=== PATIENT | male | born 2005 | race Caucasian/White ===

== ENCOUNTER → 2024-11-06 | Outpatient (CLI) | payer BC, SELFPAY ==
--- OUTSIDE RECORDS SUMMARY | 2024-11-06 07:30 | XMS RPT_ITS | CCD ---
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 Mallampati: I. TM distance: >3 FB. Neck ROM: full ROM without neurological symptoms. Mouth opening: adequate. Short neck: no. Thick neck: no DENTAL Dental findings: teeth intact. Additional exam findings: no II - ANESTHESIA PLAN ASA Score: 1 Anesthetic Plan: regional and MAC NPO Status: adequate Beta Camilla Monitoring Plan Monitoring plan: Standard ASA. Post Procedure Analgesic Plan Postoperative analgesic plan: parenteral or oral opioids, peripheral nerve block and multimodal analgesia. Informed Consent Anesthetic risks, benefits, alternatives, personnel and consent discussed: yes. Patient / Responsible Alliance Party agrees to proceed: yes Patient / Surrogate agrees to blood products: yes DNR status not reviewed with patient and/or family prior to surgery. Significant changes in the patient condition since the History and Physical, not otherwise documented in primary service progress note: no. Potential Anesthesia issues that may suggest increased risk of complications or contraindication to planned procedure: none. No vitals data found for the desired time range. Facility-Administere d Medications as of 07/20/2023 Medication Dose Route Frequency - midazolam (PF) 6 mg injection (VERSED) 6 mg INTRAVENOUS ONCE Outpatient Medications as of 07/20/2023 Medication Sig - HYDROcodone-acetamin ophen (NORCO) 5-325 mg per tablet Take 1 tablet by mouth every 6 hours as needed for pain for up to 5 days. I have interviewed and examined the patient. I have reviewed the medical record and/or the pre-anesthesia evaluation, pertinent labs, and test results. This contains updated information obtained within 48 hours of Surgery/Procedure. SIGNATURE: Sandra Grimm MD PATIENT NAME: Landon Frost DATE: July 20, 2023 TIME: 12:14 PM CSN: [id number] Normal [facility] BRIEF OP NOTon 07-20-2023 BRIEF OP NOT HNO ID: [id number] Author: AIRAM SEGOVIA MD Service: Hand Surgery Author Type: Fellow Type: Brief Op Note Filed: 07/20/2023 15:33 Note Text: BRIEF OP NOTE Patient Name: Landon Frost Log ID: [id number] Surgery Date: 07/20/2023 Pre-Op/Pre-Procedure Diagnosis: Rupture of ulnar collateral ligament of left thumb, 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 [S63.642A] Post-Op/Post-Procedu re Diagnosis: Same Surgeon(s) and Software Configuration Analyst(s): Farhan Sommers MD PhD Surgeon(s) and Role: * Farhan Sommers MD, PhD - Primary * Airam Segovia MD - Fellow Procedures and Anesthesia: Procedure(s) and Anesthesia Type: * OPEN REPAIR LIGAMENT COLLATERAL THUMB - Block Regional - Extremity Upper Start Time: 2:44 PM Stop Time: 3:26 PM Findings: distal UCL rupture with robust tissue, able to repair primarily Implant: Arthrex micro corkscrew 2.2 x 4.0mm Estimated Blood Loss: 3mL Tourniquet Time: 36min (200 mmHg) Drains: None Specimens: None Plan: 1) Discharge home today 2) Keep thumb spica splint clean, dry, and intact until follow-up Signature: Airam Segovia MD Date: July 20, 2023 Time: 3:32 PM Normal [facility] HISTORY PHYSICALon HISTORY PHYSICAL HNO ID: [id number] Author: AIRAM SEGOVIA MD Service: Hand Surgery Author Type: Fellow Type: H&P Filed: 07/20/2023 11:38 Note Text: UPDATED HISTORY AND PHYSICAL EXAMINATION SERVICE DATE: 07/20/2023 SERVICE TIME: 1137 PHYSICAL EXAM MUST BE COMPLETED ON ADMISSION The History and Physical (completed in the past 30 days) has been reviewed and the patient has been examined. The contents accurately reflect the patient's condition with the following additions or revisions since the HANDP was completed. Examination indicates no changes. This HANDP can be found in the Electronic Medical Record dated 07/06/23. 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 Item Serial No. Court Commissioner Lot No. LRB No. Used Action Model No. ANCHOR SUTURE 4-0 3/8 CIR MICRO FULTHD TAPER 2.2MM 4MM 12.3 [place] [employer] [id number] Left 1 Implanted [id number] Drain: None Specimen: None Operative Indications: The patient is an 17 year old male with a history of a left thumb UCL rupture about a year and a half ago while playing football. Advanced imaging demonstrated a Stener lesion. After the risks, benefits, and alternatives were discussed, he opted for surgical repair versus reconstruction of his UCL. Risks, Benefits, and Alternatives The patient was counseled extensively regarding the options for treatment including operative and non-operative forms of treatment and after thorough counseling has elected to proceed with surgical treatment. The patient was counseled that with surgical treatment there is the possibility that their condition might not improve or may even worsen. No guarantees or warranties were provided regarding the outcome. Specific surgical risks discussed include stiffness, infection, bleeding, post-operative pain, damage to nerves and blood vessels, wound dehiscence and wound healing problems, incomplete relief of pain, the need for physical/occupationa l therapy, inability to return to their desired level of function, complex regional pain syndrome, as well as medical complications such as anesthetic complications, cardiopulmonary complications and . The patient expressed understanding of all the issues described above and has elected to proceed with the aforementioned procedure. Operative Procedure: In the preoperative holding area, the appropriate surgical site was marked with the patient cognizant. An axillary block was performed by the anesthesiologist in the preop holding area. The patient was identified by the surgical team and a sign-in was performed with all of the pertinent surgical staff including myself, anesthesia and nursing. The patient was then brought to the operating room by the anesthesia team. The patient subsequently was transferred from their bed to the operating table and underwent MAC anesthesia. The patient was then positioned in the supine position and the arm table was attached to the operating room table. All bony prominences were well padded. The operative arm was appropriately identified and prepped. Once the hibiclens prep was completed, the operative extremity was draped in sterile fashion. A surgical time-out was performed. Preoperative antibiotics were verified to have been given within one hour of incision time, prior to incision. The arm was exsanguinated using an Esmarch and the tourniquet was then inflated to 200mmHg. A 5cm curvilinear incision was made in the skin over the ulnar side of the MCP joint. Full thickness skin flaps were elevated taking care to preserve any cutaneous nerve branches. The aponeurosis was split longitudinally. The UCL was then mobilized from where there was scar tissue distally. It was robust and not needing any augmentation but was adequate for a primary repair. We then placed a Arthrex micro corkscrew anchor in the base of the proximal phalanx and secured the UCL to the [place] insertion site. The wound was copiously irrigated and then the aponeurosis was closed in a separate layer over the ligament using 3-0 monocryl. Prior to skin closure, the tourniquet was released and hemostasis was obtained by holding pressure and using bipolar cautery on any visible bleeding vessels. Once hemostasis was verified, closure commenced. The wound was closed with 3-0 and 4-0 monocryl. All counts, verified in 2 separate count episodes, were correct at the end of the case prior to completing skin closure. A sterile dressing comprised of Xeroform, 4x4s, and webril was then applied. The drapes were taken down and a thumb spica splint was applied and then loosely wrapped with Coban to complete the dressing. The patient was then awoken from their anesthesia and transferred back to the hospital bed from the operating room table; he was then taken to the PACU i (more content not included)... Normal [facility] HISTORY PHYSICALon 4 HISTORY PHYSICAL HNO ID: [id number] Author: MELVA CASIANO PA Service: ? Author Type: Physician Software Configuration Analyst Type: H&P Filed: 07/06/2023 09:09 Note Text: HISTORY AND PHYSICAL EXAMINATION SERVICE DATE: 07/06/2023 SERVICE TIME: 9:08 AM PRIMARY CARE PHYSICIAN: Mona Barillas MD Assessment There is no known pertinent medical condition which may affect brittanie-operative course Hoyt Activity Status Index: METS: Walk indoors, such as around the house (1.75 METs) Do light work around the house, such as dusting or washing dishes (2.70 METs) Take care of self; that is eating, dressing, bathing, using the toilet (2.75 METs) Walk a block or two on level ground (2.75 METs) Do moderate work around the house, such as vacuuming, sweeping floors, or carrying in groceries (3.50 METs) Do yardwork, such as raking leaves, weeding, or pushing a power mower (4.50 METs) Climb a flight of stairs or walk up a hill (5.50 METs) Participate in moderate recreational activites, such as golf, bowling, dancing, doubles tennis, or throwing a baseball or football (6.00 METs) Participate in strenuous sport, such as swimming, singles tennis, football, basketball, or skiing (7.50 METs) Do heavy work around the house, such as scrubbing floors, lifting or moving heavy furniture (8.00 METs) Run a short distance (8.00 METs) DASI Score: 52.95 Patient denies any chest pain or undue shortness of breath with the above physical activity. STOP-Bang Score: Male patient Denies snoring loudly Denies feeling tired, fatigued, or sleepy during the daytime Has not been observed to stop breathing or choking/gasping during sleep Denies having high blood pressure BMI less than or equal to 35 kg/m2 Patient 50 years old or younger Does not have a large neck STOP-Bang Score: 1 ANESTHESIA FINDINGS: Intubation History: No prior intubation Significant Anesthesia Considerations: has never had anesthesia Airway History: No prior intubation I - PHYSICAL EVALUATION AIRWAY Patient intubated: No. Tracheostomy tube not present Mallampati: II. TM distance: >3 FB. Neck ROM: full ROM without neurological symptoms. Mouth opening: adequate. Short neck: no. Thick neck: no Arambula present: no Lip Bite Test: II Microretrognathia/Mi cronagthia/Recessed Chin: No DENTAL Dental findings: teeth intact. II - ANESTHESIA PLAN Anesthetic plan additional comments: *PACC/TCI - anesthesia choice. Beta Camilla Monitoring Plan Post Procedure Analgesic Plan Prepared for Surgery: optimally prepared for surgery. CONSULTS: Patient does not require consults for optimization at this time Planned Anesthetic: anesthesia choice The Following Tests/Procedures Have Been Initiated: No orders of the defined types were placed in this encounter. This is a virtual visit using Hapzing video visit. It required patient-provider interaction for the medical decision making as documented below. REASON FOR VISIT: Landon Frost is a 17 year old male who is scheduled for Procedure(s): OPEN REPAIR LIGAMENT COLLATERAL THUMB (Left) at the request of Dr. Farhan Sommers for consultation. My final recommendation will be communicated back to the requesting physician by way of shared medical record or letter. Subjective The patient has the following: ACTIVE PROBLEM LIST (none) - all problems resolved or deleted COVID-19 Immunization Status Overdue - Covid-19 Vaccine () Overdue since 01/08/2023 10/16/2021 Imm Admin: COVID-19 original vaccine, age 12+ yr, monovalent (PFIZER-BIONTECH - TENORIO TOP) 09/18/2021 Imm Admin: COVID-19 original vaccine, age 12+ yr, monovalent (PFIZER-BIONTECH - TENORIO TOP) CHIEF COMPLAINT: Pre-anesthesia consultation HPI: 17 year old year old male presents today for a pre-anesthesia consultation for the above procedure. Patient states he injured his left thumb while playing football in 01/2022. He reports pain, limited ROM, and decreased strength in his left thumb since the injury. He denies fever or chills. This is a virtual visit. The visit was conducted using Hapzing video visit. It required patient-provider interaction for the medical decision making as documented below. I have communicated my name and active licensure. The patient's identity and physical location were verified at the time of this visit. Either the patient or their legal field representatives director has been informed of the risks and benefits of and alternatives to treatment through a remote evaluation and consents to proceed with the evaluation remotely. REVIEW OF SYSTEMS: General: No weight loss, malaise or fevers. Neurological: No history of TIA's, stroke, CALL WORKER PERSON tumor, impaired sensorium, hemiplegia, paraplegia or quadraplegia. No neurological symptoms or problems. Respiratory: No history of current cough or dyspnea, or pneumonia in the past 6 weeks. No history of respiratory/pulmonar y symptoms or problems. Cardiovascular: No history of H (more content not included)... Normal [facility] CNOVon 04-19-2023 CNOV Office Visit (ORTPMN) SANTOSHLANDON Hawthorne ([id number]) 3 M Date Time Provider Department 04/19/23 10:25 AM FARHAN SOMMERS ORMN During your visit today, we recorded the following information about you: Farhan Sommers MD, PhD 04/19/2023 12:54 PM Signed April 19, 2023 CHIEF COMPLAINT: left thumb pain/instability HPI: Landon Hawthorne Santosh is a 17 year old LHD male who presents to clinic with Pain and instability of his left thumb. 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 He recently finished his senior season. He was able to play this year by taping his thumb. He was previously told he had a collateral ligament injury to the thumb but was advised that he could continue playing and have it dealt with later if he was physically able to play. 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 Denies numbness tingling. Does report pain with daily activities around his MCP joint. Referred by: Dr Kennedy Occupation: high school student Hobbies: football Pain: yes Weakness: yes Paresthesia: no Decreased Motion:no Locking / Catching: no Mass or Lesion: no HISTORY OF TRAUMA: yes Fracture: no Dislocation: no Laceration: no PREVIOUS TREATMENTS: Injections: no Medication: no Splints: yes Therapy:no Other: taping ASSESSMENT: 17 year old male with left thumb UCL injury S63.642A Rupture of ulnar collateral ligament of left thumb, 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 (primary encounter diagnosis) PLAN: We discussed various treatment options for this condition, including nonoperative management in the form of splinting, versus operative management in the form of repair versus repair plus augmentation of internal brace versus reconstruction. Given the fact that he is 17 and healthy, he may not need reconstruction, even though the injury occurred over a year ago. We will book him for a repair versus a reconstruction with an internal brace. OBJECTIVE: There were no vitals filed for this visit. There is no height or weight on file to calculate BMI. General: NAD Eyes: Pupils not pinpointed, not overly dilated, anicteric Neck: Full range of motion Cardiovascular: Palpable pulse and brisk capillary refill (<2 sec) to all fingers Lymphatic: Inspection of the arm/hand reveals no lymphedema and palpation of epitrochlear nodes is unremarkable. Respiratory: Respirations even and unlabored, no audible wheezing Integumentary: Inspection of skin reveals no breaks or obvious lesions except for those noted below. Neuro: Intact sensation to light touch over the median, ulnar, and radial nerve distributions. Psychiatric: No obvious anxiety, well kempt, normal affect. Appropriate response to pain. Musculoskeletal: Able to flex and extend all fingers at the DIP and PIP. Able to retropulse the thumb, abduct all fingers against resistance. Left thumb Swelling of MCP joint Laxity with valgus stress in 30 degrees of flexion without firm endpoint No laxity in full extension Mild TTP over ulnar side of joint No hyperextension No palmaris present SILT distally, digit WWP IMAGING: Radiographs and MRI of the left thumb were obtained in 2021 which were personally reviewed by me and demonstrate UCL tear with associated Stener lesion Supporting Subjective Information Below: Past Medical History: PAST MEDICAL HISTORY Diagnosis Date Dislocated elbow 05-13-14 NEGATIVE MEDICAL HISTORY PMH - PAST MEDICAL HISTORY OF 2009 normal color vision Past Surgical History: PAST SURGICAL HISTORY Procedure Laterality Date CIRCUMCISION Family History: FAMILY HISTORY Problem Relation Age of Onset None Mother None Father Diabetes Maternal Grandmother Hypertension Maternal Grandmother Cancer Maternal Grandfather skin Diabetes Maternal Grandfather Hypertension Maternal Grandfather Heart Paternal Grandfather Cancer Other colon cancer paternal side Medications: Current Outpatient Medications Medication Sig Dispense Refill fluticasone (FLONASE) 50 mcg/actuation nasal spray Use 1 Ramsey in each nostril once daily. 1 Bottle 5 fexofenadine (TESSY) 60 mg tablet Take 1 tablet by mouth twice daily. (Patient not taking: Reported on 04/19/2023) 180 tablet 3 No current facility-administere d medications for this visit. Allergies: ALLERGIES No Known Allergies ROS: General (negative for fatigue) HEENT (negative for headache, earache, recent vision changes, sinus pain, sore throat) Respiratory (no recent shortness of breath, hemoptysis) CV (negative for chest tightness, palpitations) GI (negative for change in bowel habits) Hematologic (no spontaneous bleeding, bruising) Endocrine (no heat or cold intolerance) Airam Alvarez MD ATTENDING NOTE: I personally performed a history and physical examination on Landon Frost to verify the one performe (more content not included)... Normal [facility] Sukhi 03-16-2023 CNPN Telephone (VIDHYAWS) LANDON FROST ([id number]) 3 M Date Time Provider Department 03/16/23 MARQUES KENNEDY During your visit today, we recorded the following information about you: JAE Ramirez Laurie 03/16/2023 1:10 PM Signed Pts father calling in. Pt was seen last year for torn ligament in his thumb. There was evidentially something in the works about a coordinated surgery with another provider, but then they didn't hear back. Pt is now finished with football and would like to proceed with surgery. Will schedule appt with Dr. Kennedy, but wanted to be sure that this was still something that Dr. Kennedy would do in coordination with the other surgeon. Please review and advise. JAE Metz Ma, Amy M 03/22/2023 12:04 PM Signed Jacqueline Silva PA-C [facility] Orthopaedic Pool; [facility] [address] days [address] with Dr. Kennedy, patient needs to schedule a consult with Dr. Sommers, can we assist him with scheduling? Jacqueline Agustin Ma, Yaneth Lindsay 03/22/2023 12:04 PM Signed Please assist patient with appointment to see Dr. Sommers. Thank you. Mckenna Briggs 03/22/2023 12:22 PM Signed 1st call attempt, left vm JAE Ramirez Laurie 03/23/2023 10:17 AM Signed Pts father calling to schedule the appt with Dr. Sommers. Please contact them at [phone]. JAE Metz MA, Laurie 03/23/2023 10:30 AM Signed Transferred to [facility]. Jes Ramirez MA Allergies As of Date: 03/16/2023 (No Known Allergies) Date Reviewed: 04/19/2022 Reviewed by: Marques Kennedy MD - Fully Assessed Reason for Visit: Patient Question [2847] Prescriptions as of 03/23/2023 - fexofenadine (TESSY) 60 mg tablet Take 1 tablet by mouth twice daily. - fluticasone (FLONASE) 50 mcg/actuation nasal spray Use 1 Ramsey in each nostril once daily. Problem List As Of Date 03/16/2023 Noted Resolved Dislocation of left elbow [S53.105A] 05/15/2014 11/14/2015 Closed fracture of radius [S52.90XA] 03/18/2015 11/14/2015 Encounter Status:Closed by JAE RAMIREZ LAURIE on 03/23/23 Normal [facility] MR Hand - left WO contraston 01-10-2022 IMPRESSION: Displaced rupture of thumb ulnar collateral ligament with associated Stener lesion. Distal first metacarpal marrow contusion. Craps Manager: PSCB Transcribe Date/Time: Jan 10 2022 9:38A Dictated by : ANIVAL ZARAGOZA, DO This examination was interpreted and the report reviewed and electronically signed by: JESSICA GRACE MD on Jan 10 2022 11:15AM [facility] DIVISION OF RADIOLOGY * * *Final Report* * * DATE OF EXAM: Jan 09 2022 7:00PM [facility] 0200 - MRI HAND WO IVCON LT / PROCEDURE REASON: Closed fracture of left hand, 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 * * * * Physician Interpretation * * * * EXAMINATION: MRI HAND WO IVCON LT HISTORY: 16-year-old male presenting with left thumb fracture status post injury on 12/19/2021 during football, concerning for ulnar collateral ligament rupture. TECHNIQUE: Routine MRI of the thumb without contrast COMPARISON: Abdominal radiographs 12/22/2021 RESULT: Ligaments: Rupture of ulnar collateral ligament of the thumb at the distal attachment, with retraction and displacement superficial to the adductor aponeurosis, consistent with a Stener lesion. Associated moderate marrow edema at the base of some proximal phalanx. Tendons: Mild increased signal within the tendon sheath of the thumb flexor tendon at the level of base of proximal phalanx, likely reactive fluid. The visualized flexor and extensor tendons are otherwise intact. Bones and bone marrow: Subacute moderate contusion at the distal first metacarpal with moderate marrow edema. Joints/cartilage: Mild volar subluxation at the thumb MCP joint. Joint fluid: Small joint effusion at the thumb MCP joint. Other: No other significant findings. Localizer images: No significant additional findings. DIVISION OF RADIOLOGY Provider, [facility] [place] - 01/10/2022 * * *Final Report* * * DATE OF EXAM: Jan 09 2022 7:00PM [facility] 0200 - MRI HAND WO IVCON LT / PROCEDURE REASON: Closed fracture of left hand, 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 * * * * Physician Interpretation * * * * EXAMINATION: MRI HAND WO IVCON LT HISTORY: 16-year-old male presenting with left thumb fracture status post injury on 12/19/2021 during football, concerning for ulnar collateral ligament rupture. TECHNIQUE: Routine MRI of the thumb without contrast COMPARISON: Abdominal radiographs 12/22/2021 RESULT: Ligaments: Rupture of ulnar collateral ligament of the thumb at the distal attachment, with retraction and displacement superficial to the adductor aponeurosis, consistent with a Stener lesion. Associated moderate marrow edema at the base of some proximal phalanx. Tendons: Mild increased signal within the tendon sheath of the thumb flexor tendon at the level of base of proximal phalanx, likely reactive fluid. The visualized flexor and extensor tendons are otherwise intact. Bones and bone marrow: Subacute moderate contusion at the distal first metacarpal with moderate marrow edema. Joints/cartilage: Mild volar subluxation at the thumb MCP joint. Joint fluid: Small joint effusion at the thumb MCP joint. Other: No other significant findings. Localizer images: No significant additional findings. IMPRESSION IMPRESSION: Displaced rupture of thumb ulnar collateral ligament with associated Stener lesion. Distal first metacarpal marrow contusion. Craps Manager: TONIA Transcribe Date/Time: Jan 10 2022 9:38A Dictated by : ANIVAL ZARAGOZA DO This examination was interpreted and the report reviewed and electronically signed by: JESSICA GRACE MD on Jan 10 2022 11:15AM EST [facility] MR Hand - left WO contrastOr dered By: Ccf Provider on 01-10-2022 [facility] MR Hand - left WO contraston 01-09-2022 Radiology Study observation (narrative) [facility] XR DIGIT GENERAL 3V FRONTAL/ LAT/OBL LEFTon 12-22-2021 [facility] XR Finger - left AP and Late ral and obliqueon 12-22-2021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 to perform basic self-care tasks, light functional tasks, and prior functional tasks. Patient will increase AROM of Left thumb to within 10 degrees of opposite side in order to be able to improve function for moderate to heavy functional tasks. Patient will independently demonstrate correct application of PREFABRICATED orthosis and verbalize understanding of proper wear/care. Patient Goals: get back to functional use and work Planned Interventions, Frequency, and Duration: Current Frequency: 1x every other week Duration: 12 weeks Total Number of Visits Planned: 6 Planned Treatment Interventions: Prefabricated orthosis fitting, Therapeutic exercise (97660), Self-fdc management (60468) PLAN FOR NEXT VISIT:check progress; continue with protective splinting up until 12 wks post surgery; can decrease night brace use as comfortable after 6 wks post surgery; Patient demonstrates good understanding of plan of care and treatment. The above goals and plan of care were discussed and agreed upon by patient/family. 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 5 points is clinically meaningfully difference Percentiles provide an indication of how the patient's score ranks in relation to the general population. Higher percentile rankings indicate better function/quality of life. 50th percentile is the average of the general population and indicates half of respondents had a worse score. OBJECTIVE MEASURES WITH LEVEL OF FUNCTION: Hand Skin / Wound: Scar Scar: Tender (some numbness) Edema Description: Mild Edema Measurements: Digits Edema - Digits: Thumb R Thumb P1 (cm): 6.8 cm R Thumb IP Joint (cm): 7.1 cm L Thumb P1 (cm): 7.3 cm L Thumb IP Joint (cm): 6.8 cm Wrist AROM: Bilateral Limitation Thumb AROM: Bilateral Limitation UE AROM R Wrist Extension: 90 Degrees R Wrist Flexion: 65 Degrees L Wrist Extension: 90 Degrees L Wrist Flexion: 55 Degrees Thumb AROM: Bilateral Limitation Hand AROM R Thumb MP Extension : 0 Degrees R Thumb MP Flexion : 55 Degrees R Thumb IP Extension : 0 Degrees R Thumb IP Flexion : 65 Degrees R Thumb Flexion Adduction (cm): (more content not included)... [facility] 08-18-2023 Note HNO ID: [id number] Author: ALDEN FISHER MA Service: ? Author Type: Division Manager Type: Progress Notes Filed: 08/18/2023 09:53 Note Text: PT ASSESSMENT - CASTING ROOM Landon presents for cast removal. Cast removed and patient was directed to OT for next encounter. Alden Fishre, EMT-B, Funeral Location Manager Beeper: [phone] [facility] 08-18-2023 Note HNO ID: [id number] Author: HANNAH FAYE PA-C Service: ? Author Type: Physician Software Configuration Analyst Type: Progress Notes Filed: 08/18/2023 10:30 Note Text: Landon Frost is now 4 weeks s/p left thumb UCL repair (07/20/23). Doing well and is without complaints today. He does not have pain. Denies any numbness/tingling today other than around the incision. He has been in a cast. General: NAD, AAOx3 Neuro:Intact sensation to light touch over the median, ulnar, and radial nerve distributions. Musculoskeletal: Able to flex and extend all fingers at the DIP and PIP. Able to retropulse the thumb, abduct all fingers against resistance. Incision well healed without surrounding erythema or drainage. Full sensation of all digits. PLAN: Weeks 4-6: Transition to a hand-based, custom fabricated thermoplastic splint used to protect the MP joint. Remove the splint approximately 4x per day for controlled active ROM exercises, preferably under the careful supervision of a certified hand therapist Week 6: Discontinue wearing the splint but continue avoiding activities which stress the UCL for 3 months post-operatively May continue to wear a custom splint to protect the UCL for activities until 12 weeks post-operatively. He will work on ROM Exercises with OT Scar massage Discussed restrictions Follow-up in 6 weeks Hannah Faye PA-C [facility] 08-18-2023 History of Present illness Narrative Images from the original note were not included. Episode Visit Count: 1 Therapist That Will Accept/Oversee The Plan Of Care: Luther Start of Care Date: 08/18/23 Onset Date: 07/20/23 Plan of Care Certification Date: 08/18/23 Next Certification Due Date: 11/10/23 Patient Identified by Name and Date of : Yes [facility] OCCUPATIONAL THERAPY EVALUATION PLAN OF CARE: Assessment: Landon Frost presents with diagnosis of L thumb UCL repair that interferes with lifting, physical activities, recreational activities, grooming, driving, weight bearing, gripping, pinching, twisting, pulling, pushing, carrying . He presents with impairments in edema management, overall function, range of motion, soft tissue healing, and tissue tenderness. PROMIS (Patient-Reported Outcomes Measurement Information System) scores were reviewed and identified as within normal limits. Prognosis for therapy is Good due to: current objective clinical presentation, good overall health status . He will benefit from skilled therapy services to meet the goals established for this plan of care as noted below. Goals for Episode of Care created on 08/18/23 through 11/10/23 Patient will report a good understanding of diagnosis and OT recommendations for progression of program. Patient will demonstrate independence with ongoing home recommendations/exercise program throughout therapy plan of care. Patient will improve function in Left thumb in order to be able to perform basic self-care tasks, light functional tasks, and prior functional tasks. Patient will increase AROM of Left thumb to within 10 degrees of opposite side in order to be able to improve function for moderate to heavy functional tasks. Patient will independently demonstrate correct application of PREFABRICATED orthosis and verbalize understanding of proper wear/care. Patient Goals: get back to functional use and work Planned Interventions, Frequency, and Duration: Current Frequency: 1x every other week Duration: 12 weeks Total Number of Visits Planned: 6 Planned Treatment Interventions: Prefabricated orthosis fitting, Therapeutic exercise (35429), Self-fdc management (07082) PLAN FOR NEXT VISIT:check progress; continue with protective splinting up until 12 wks post surgery; can decrease night brace use as comfortable after 6 wks post surgery; Patient demonstrates good understanding of plan of care and treatment. The above goals and plan of care were discussed and agreed upon by patient/family. 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 5 points is clinically meaningfully difference Percentiles provide an indication of how the patient's score ranks in relation to the general population. Higher percentile rankings indicate better function/quality of life. 50th percentile is the average of the general population and indicates half of respondents had a worse score. OBJECTIVE MEASURES WITH LEVEL OF FUNCTION: Hand Skin / Wound: Scar Scar: Tender (some numbness) Edema Description: Mild Edema Measurements: Digits Edema - Digits: Thumb R Thumb P1 (cm): 6.8 cm R Thumb IP Joint (cm): 7.1 cm L Thumb P1 (cm): 7.3 cm L Thumb IP Joint (cm): 6.8 cm Wrist AROM: Bilateral Limitation Thumb AROM: Bilateral Limitation UE AROM R Wrist Extension: 90 Degrees R Wrist Flexion: 65 Degrees L Wrist Extension: 90 Degrees L Wrist Flexion: 55 Degrees Thumb AROM: Bilateral Limitation Hand AROM R Thumb MP Extension : 0 Degrees R Thumb MP Flexion : 55 Degrees R Thumb IP Extension : 0 Degrees R Thumb IP Flexion : 65 Degrees R Thumb Flexion Adduction (cm): 0 cm R Thumb Radial Abduction: 65 Degrees L Thumb MP Extension : 0 Degrees L Thumb MP Flexion : 55 Degrees L Thumb IP Extension : 0 Degrees L Thumb IP Flexion : 40 Degrees L Thumb Flexion Adduction (cm): -2.5 cm L Thumb Radial Abduction: 55 Degrees Education: Education Learning Preferences: Demonstration, Explanation, Performance, Printed Materials Barriers: None Learning/educational needs: Plan of Care, Home exercise program, Brace Fit Education Provided: Yes, see treatment interventions for education provided Education Provided To: Patient (father) Education Mode/Type: Demonstration, Explanation/Discussion, Literature/Printed Materials, Performance Response to Education/Teach Back: States/Identifies, Return Demonstration TREATMENT: OT Treatment Interventions : Therapeutic Exercise, Self-Mcc Management, Prefabricated Orthosis Fitting Evaluation Therapeutic Exercise: 1: Thumb Exercises: remove splint at least 6 x day for low reps of thumb motion (see pictures) 2: Seen in OT by PA; needs to do protective splinting during heavier tasks until 12 wks post surgery Skilled Intervention: Patient was educated in proper exercise technique and purpose for exercises. Skilled judgment was used in selection of appropriate interventions. Provided written instruction for home exercise program to facilitate proper performance and compliance. Correct performance of therapeutic exercises was facilitated with verbal and visual cuing. Self-Mcc Management: 1: Washing: wash wiht regular soap and water 2: Swelling: ice as needed or run under cold water 3: Scar: massage with firm pressure circles a few times a day to loosen tight tissues 4: Scar: add silicone at night after freshly washing and drying skin 5: OK to remove splint when in safe environment for communications analyst tasks like eating, dressing and airing out skin Skilled Intervention: Activity progression based on professional judgement. Prefabricated orthosis: L 3923 (a) HFO w/out joints (PUSH Metagrip, Actimove) (Actimove Larger) Prefabricated orthosis to provide immobilization, protection and support of surgical repair to promote healing. Patient was instructed in wear and care. Instructed in wearing schedule chyron operator except when exercising / bathing. . Skilled Intervention: Technical skill required for proper fitting of pre-fabricated orthotic and wearing schedule Home Program Assigned: 1: Washing: wash wiht regular soap and water 2: Swelling: ice as needed or run under cold water 3: Scar: massage with firm pressure circles a few times a day to loosen tight tissues 4: Scar: add silicone at night after freshly washing and drying skin 5: Splint; wear most of the day for protection and at night; 6: Thumb Exercises: remove splint at least 6 x day for low reps of thumb motion (see pictures) 7: OK to remove splint when in safe environment for communications analyst tasks like eating, dressing and airing out skin Billing * Evaluation Moderate Complexity: 1 Unit Therapeutic Exercise Treatment Minutes: 5 Self-Care/Home Management Treatment Minutes: 10 * L 3923 (a) HFO w/out joints (PUSH Metagrip, Actimove): 1 Skilled Treatment Time Minutes (timed and untimed codes): 39 Total Session Time (minutes): 39 Session Start Time : 1006 Session Stop Time : 1045 Yvette Sloan OT/L, CHT documented in this encounter [facility] 08-18-2023 History of Present illness Narrative PT ASSESSMENT - CASTING ROOM Landon presents for cast removal. Cast removed and patient was directed to OT for next encounter. Alden Fisher, EMT-B, Funeral Location Manager Beeper: [id number] documented in this encounter [facility] 08-18-2023 History of Present illness Narrative Landon Frost is now 4 weeks s/p left thumb UCL repair (07/20/23). Doing well and is without complaints today. He does not have pain. Denies any numbness/tingling today other than around the incision. He has been in a cast. General: NAD, AAOx3 Neuro:Intact sensation to light touch over the median, ulnar, and radial nerve distributions. Musculoskeletal: Able to flex and extend all fingers at the DIP and PIP. Able to retropulse the thumb, abduct all fingers against resistance. Incision well healed without surrounding erythema or drainage. Full sensation of all digits. PLAN: Weeks 4-6: Transition to a hand-based, custom fabricated thermoplastic splint used to protect the MP joint. Remove the splint approximately 4x per day for controlled active ROM exercises, preferably under the careful supervision of a certified hand therapist Week 6: Discontinue wearing the splint but continue avoiding activities which stress the UCL for 3 months post-operatively May continue to wear a custom splint to protect the UCL for activities until 12 weeks post-operatively. He will work on ROM Exercises with OT Scar massage Discussed restrictions Follow-up in 6 weeks Hannah Faye PA-C documented in this encounter [facility] 08-04-2023 Note HNO ID: [id number] Author: SOWMYA SINGER Cast Paxton Service: ? Author Type: Bond Underwriter Type: Progress Notes Filed: 08/04/2023 08:49 Note Text: PT ASSESSMENT - CASTING ROOM Landon presents for Application of cast. Applied short cast: to Left hand Patient has been instructed in Care of cast.. Yuliet Resendiz Beeper: [id number] [facility] 08-04-2023 Note HNO ID: [id number] Author: YVETTE SLOAN OT/L Service: ? Author Type: Occupational Therapist Type: Progress Notes Filed: 08/04/2023 08:27 Note Text: Patient sent to casting for 2 wks.... to start OT in 2 wks Yvette Sloan OT/L, CHT [facility] 08-04-2023 Note HNO ID: [id number] Author: HANNAH FAYE PA-C Service: ? Author Type: Physician Software Configuration Analyst Type: Progress Notes Filed: 08/04/2023 08:47 Note Text: Landon Frost is now 2 weeks s/p left thumb UCL repair (07/20/23). Doing well and is without complaints today. He does not have pain. Denies any numbness/tingling today. General: NAD, AAOx3 Neuro:Intact sensation to light touch over the median, ulnar, and radial nerve distributions. Musculoskeletal: Able to flex and extend all fingers at the DIP and PIP. Able to retropulse the thumb, abduct all fingers against resistance. Incision well healed without surrounding erythema or drainage. Full sensation of all digits. PLAN: He will go into a thumb spica cast No lifting/pushing/pulling with LUE Follow-up in 2 weeks to transition to a removable thumb spica brace Hannah Faye PA-C [facility] 08-04-2023 History of Present illness Narrative PT ASSESSMENT - CASTING ROOM Landon presents for Application of cast. Applied short cast: to Left hand Patient has been instructed in Care of cast.. Yuliet Resendiz Beeper: [id number] Landon Frost is now 2 weeks s/p left thumb UCL repair (07/20/23). Doing well and is without complaints today. He does not have pain. Denies any numbness/tingling today. General: NAD, AAOx3 Neuro:Intact sensation to light touch over the median, ulnar, and radial nerve distributions. Musculoskeletal: Able to flex and extend all fingers at the DIP and PIP. Able to retropulse the thumb, abduct all fingers against resistance. Incision well healed without surrounding erythema or drainage. Full sensation of all digits. PLAN: He will go into a thumb spica cast No lifting/pushing/pulling with LUE Follow-up in 2 weeks to transition to a removable thumb spica brace Hannah Faye PA-C documented in this encounter [facility] 08-04-2023 Instructions Hannah Faye PA-C - 08/04/2023 8:31 AM EDT 08/17 Cast off 9:30 Yvette OT - 9:45 Hannah Faye- 11am- see in OT documented in this encounter [facility] 08-04-2023 History of Present illness Narrative Patient sent to casting for 2 wks.... to start OT in 2 wks Yvette Sloan OT/L, CHT documented in this encounter [facility] 07-20-2023 Note HNO ID: [id number] Author: SANDRA GRIMM MD Service: Anesthesiology Author Type: Anesthesiologist Type: Anesthesia Procedure Notes Filed: 07/20/2023 13:11 Note Text: ANESTHESIOLOGY PROCEDURE NOTE Peripheral Nerve Block General Information Procedure Start Time/Medication Administration: 07/20/2023 12:38 PM Procedure End time: 07/20/2023 12:57 PM Patient location during procedure: pre-op Timeout Performed Pre-procedure: timeout performed Consent Obtained: Yes Patient identity confirmed: arm band Reason for block: post-op pain management/at surgeon's request Staffing Anesthesiologist: Sandra Grimm MD Performed by: anesthesiologist Preparation Sterility Preparation: hand hygiene performed prior to procedure, sterile gloves, drapes, and procedure tray, surgical cap used, mask used, sterile drape used during line insertion, skin prep agent completely dried prior to procedure Site Prep: Chloraprep Pre-Procedure Neuro Exam Location: LUE Sensory: intact Motor: intact Procedure Details Patient Position: supine Monitoring: Pulse OX, EKG and NIBP Block Type Upper Extremity: brachial plexus Approach: supraclavicular Laterality: left Injection Technique: single-shot Ultrasound Guided: Yes Image in Chart: yes Local Infiltration: Yes Needle Needle Type: echogenic Needle Gauge: 22 G Needle Length: 51 mm Needle Localization: ultrasound, anatomical landmarks and nerve stimulator Assessment Injection assessment: negative aspiration, no paresthesia on injection, incremental injection and local visualized surrounding nerve on ultrasound Paresthesia: none Post-Procedure Neuro Exam Expected Regional Anesthesia: Yes Medications Administered dexamethasone sodium phosphate injection (DECADRON) - peripheral nerve block 4 mg - 07/20/2023 12:38:00 PM ropivacaine (PF) 5 mg/mL (0.5 %) injection (NAROPIN) - peripheral nerve block 20 mL - 07/20/2023 12:38:00 PM SIGNATURE: Sandra Grimm MD PATIENT NAME: Landon Frost DATE: July 20, 2023 TIME: 1:00 PM CSN: [id number] [facility] 07-06-2023 Instructions Melva Casiano PA - 07/06/2023 9:04 AM EST PATIENT PREOPERATIVE INSTRUCTIONS Farhan Sommers MD, PhD has scheduled you for your procedure at this surgery center: [facility]: [phone] --[id number] [place] [address]. Please read below carefully for your personalized instructions. Dietary Restrictions: - No solid food after midnight. - You may have 12 ounces of clear liquids (water, clear juices such as apple juice or gatorade, carbonated beverages, clear tea, black coffee, jello) until 2 hours before scheduled arrival at facility. Medications: Unless instructed differently below, stay on all of your medications until your surgery. If you start any new medications after today's visit, please contact your surgeon. No outpatient medications have been marked as taking for the 07/06/23 encounter (PAT) with [facility]. If you take any medications for erectile dysfunction-Cialis (Tadalafil), Levitra, Staxyn (Vardenafil) Viagra (Sildenenafil please do not take these for 48 hours before surgery. If you start any new medications after today's visit, please contact the surgeon's office. Blood Thinning Medications: - Stop NSAIDS (Ibuprofen, Advil, Aleve, Motrin, Celebrex, Mobic, etc.) 7 days before surgery, as directed by your surgeon. - Stop Aspirin 7 days before surgery, as directed by your surgeon. - Stop Vitamin E, ALL multi-vitamins, herbals and dietary supplements 7 days before surgery. - You may take Tylenol (Acetaminophen) or any of your pain medications that do not contain aspirin or NSAIDS as needed. Important Reminders: - If you use CPAP/BIPAP, bring the machine with you to the surgery center. - Candy, mints, and tobacco products are NOT permitted the morning of surgery. - Hearing aids, dentures and glasses may be worn the morning of surgery. - NO jewelry, body piercings, makeup, hairpins or contacts are to be worn the day of surgery. If you develop symptoms such as a fever, cold, or flu, or have other changes to your health within TWO DAYS of scheduled surgery or the morning of surgery, please contact the surgery center above. Personal Belongings: -Please have photo ID and insurance cards. -If you do not have a copy of advance directives on file with us, please bring a copy with you on the day of surgery. - Leave ALL valuables and money at home or with family members. For Outpatient Procedures: - YOU MUST HAVE A RESPONSIBLE NEGATIVE NOTCHER TAKE YOU HOME. A LOTTERY CLERK OR VP DIRECTOR OF FINANCE CANNOT BE MADE A RESPONSIBLE NEGATIVE NOTCHER. - We recommend that a responsible person stays with you overnight to take care of you. - You cannot stay in a hotel alone after outpatient surgery. You will not be permitted to have your surgery, if you do not have someone to take care of you. Arrival Time for Surgery: - The Surgery Center or hospital where you are having surgery will call the afternoon before surgery (or Wednesday for Wednesday surgery) with a scheduled arrival time. - If you have not heard by 4 pm, please contact the surgery center above. Please be aware that emergency situations arise, which may delay or change your surgical time. If this happens, we will notify you as soon as possible and regret any inconvenience. If you already have an Advance Directive, please fax a copy to [phone] or email to for it to be added to your chart. If you do not have an Advance Directive, you can find the appropriate form and more information at [email or web address]. We recommend that you complete the Advance Directive form found on the website and bring it with you the day of your surgery. It can be witnessed and scanned into your chart that day. SUZETTE Garcia documented in this encounter [facility] 07-06-2023 History and physical note HISTORY AND PHYSICAL EXAMINATION SERVICE DATE: 07/06/2023 SERVICE TIME: 9:08 AM PRIMARY CARE PHYSICIAN: Mona Barillas MD Assessment There is no known pertinent medical condition which may affect brittanie-operative course Hoyt Activity Status Index: METS: Walk indoors, such as around the house (1.75 METs) Do light work around the house, such as dusting or washing dishes (2.70 METs) Take care of self; that is eating, dressing, bathing, using the toilet (2.75 METs) Walk a block or two on level ground (2.75 METs) Do moderate work around the house, such as vacuuming, sweeping floors, or carrying in groceries (3.50 METs) Do yardwork, such as raking leaves, weeding, or pushing a power mower (4.50 METs) Climb a flight of stairs or walk up a hill (5.50 METs) Participate in moderate recreational activites, such as golf, bowling, dancing, doubles tennis, or throwing a baseball or football (6.00 METs) Participate in strenuous sport, such as swimming, singles tennis, football, basketball, or skiing (7.50 METs) Do heavy work around the house, such as scrubbing floors, lifting or moving heavy furniture (8.00 METs) Run a short distance (8.00 METs) DASI Score: 52.95 Patient denies any chest pain or undue shortness of breath with the above physical activity. STOP-Bang Score: Male patient Denies snoring loudly Denies feeling tired, fatigued, or sleepy during the daytime Has not been observed to stop breathing or choking/gasping during sleep Denies having high blood pressure BMI less than or equal to 35 kg/m^2 Patient 50 years old or younger Does not have a large neck STOP-Bang Score: 1 ANESTHESIA FINDINGS: Intubation History: No prior intubation Significant Anesthesia Considerations: has never had anesthesia Airway History: No prior intubation I - PHYSICAL EVALUATION AIRWAY Patient intubated: No. Tracheostomy tube not present Mallampati: II. TM distance: >3 FB. Neck ROM: full ROM without neurological symptoms. Mouth opening: adequate. Short neck: no. Thick neck: no Arambula present: no Lip Bite Test: II Microretrognathia/Micronagthia/Re cessed Chin: No DENTAL Dental findings: teeth intact. II - ANESTHESIA PLAN Anesthetic plan additional comments: *PACC/TCI - anesthesia choice. Beta Camilla Monitoring Plan Post Procedure Analgesic Plan Prepared for Surgery: optimally prepared for surgery. CONSULTS: Patient does not require consults for optimization at this time Planned Anesthetic: anesthesia choice The Following Tests/Procedures Have Been Initiated: No orders of the defined types were placed in this encounter. This is a virtual visit using Hapzing video visit. It required patient-provider interaction for the medical decision making as documented below. REASON FOR VISIT: Landon Frost is a 17 year old male who is scheduled for Procedure(s): OPEN REPAIR LIGAMENT COLLATERAL THUMB (Left) at the request of Dr. Farhan Sommers for consultation. My final recommendation will be communicated back to the requesting physician by way of shared medical record or letter. Subjective The patient has the following: ACTIVE PROBLEM LIST (none) - all problems resolved or deleted COVID-19 Immunization Status Overdue - Covid-19 Vaccine ( season) Overdue since 01/08/2023 10/16/2021 Imm Admin: COVID-19 original vaccine, age 12+ yr, monovalent (Cuponomia - TENORIO TOP) 09/18/2021 Imm Admin: COVID-19 original vaccine, age 12+ yr, monovalent (Storitz-BIONTBioapter - TENORIO TOP) CHIEF COMPLAINT: Pre-anesthesia consultation HPI: 17 year old year old male presents today for a pre-anesthesia consultation for the above procedure. Patient states he injured his left thumb while playing football in 01/2022. He reports pain, limited ROM, and decreased strength in his left thumb since the injury. He denies fever or chills. This is a virtual visit. The visit was conducted using Hapzing video visit. It required patient-provider interaction for the medical decision making as documented below. I have communicated my name and active licensure. The patient's identity and physical location were verified at the time of this visit. Either the patient or their legal field representatives director has been informed of the risks and benefits of and alternatives to treatment through a remote evaluation and consents to proceed with the evaluation remotely. REVIEW OF SYSTEMS: General: No weight loss, malaise or fevers. Neurological: No history of TIA's, stroke, CALL WORKER PERSON tumor, impaired sensorium, hemiplegia, paraplegia or quadraplegia. No neurological symptoms or problems. Respiratory: No history of current cough or dyspnea, or pneumonia in the past 6 weeks. No history of respiratory/pulmonary symptoms or problems. Cardiovascular: No history of HTN requiring medication, no history of angina, CHF, DE, cardiac surgery or stents. Denies rest pain, gangrene or revascularization/amputation for PVD. No history of cardiovascular symptoms or problems. GI: No history of GI symptoms or problems. No history of esophageal varices, recent ascites, or ETOH greater than 2 drinks per day. : No history of dysuria, frequency or incontinence, stones or chronic kidney disease. No difficulty urinating, nocturia > 1 time per night or hematuria. Endocrine: No history of diabetes. Has not taken steroids within the past 30 days. No history of endocrinological symptoms or problems. Hematology: No history of bleeding or clotting disorder. Patient is not taking anti-coagulation or platelet medications. No history of hematological symptoms or problems. Oncology: No history of CA metastasis, chemo within 30 days, or radiotherapy within 90 days. No history of oncological symptoms or problems. Psych: No history of psychiatric symptoms or problems. Musculoskeletal: See HPI. Skin: Negative for lesions, rash and itching. PAST MEDICAL HISTORY Diagnosis Date Dislocated elbow 05-13-14 NEGATIVE MEDICAL HISTORY PMH - PAST MEDICAL HISTORY OF 2009 normal color vision PAST SURGICAL HISTORY Procedure Laterality Date CIRCUMCISION PAST SURGICAL HISTORY OF Left elbow dilsocation FAMILY HISTORY Problem Relation Age of Onset None Mother None Father Diabetes Maternal Grandmother Hypertension Maternal Grandmother Cancer Maternal Grandfather skin Diabetes Maternal Grandfather Hypertension Maternal Grandfather Heart Paternal Grandfather Cancer Other colon cancer paternal side Anesthesia Problems No Family History Malig Hyperthermia No Family History Social History Tobacco Use Smoking status: Never Smokeless tobacco: Never Substance Use Topics Alcohol use: No Drug use: No Prior to Admission medications as of 07/06/23 0858 Medication Sig Last Dose Taking fluticasone (FLONASE) 50 mcg/actuation nasal spray Use 1 Ramsey in each nostril once daily. Patient not taking: Reported on 07/06/2023 Not Taking No medication comments found. ALLERGIES No Known Allergies Objective PHYSICAL EXAM: (if completed, exam performed via video enabled technology) General: alert and oriented. Skin: No apparent rashes.. HEENT: EOM intact. Cardiovascular: Self palpated radial pulse, regular when counted aloud by patient . Respiratory: Adequate non-labored breathing. Equal chest rise and fall bilaterally.. Abdomen: Extremities: No obvious deformities.. Neurological: No obvious deficits. Normal cognition. Grossly normal motor skills.. PAIN ASSESSMENT: VITALS: Ht 6' 0 (1.83m) Wt 180 lb (81.6kg) BMI 24.41 kg/(m^2). Diagnostic tests reviewed for today's visit: Lab Value Units Date High Low HB No results within date range. HCT No results within date range. WBC No results within date range. PLT No results within date range. NA No results within date range. K No results within date range. GLUC No results within date range. BUN No results within date range. CREAT No results within date range. PTSEC No results within date range. INR No results within date range. APTT No results within date range. ALT No results within date range. AST No results within date range. TBILI No results within date range. TSH No results within date range. Lab Value Units Date High Low HCGQT No results within date range. UHCG No results within date range. HCG, BODY* No results within date range. Lab Value Units Date High Low ABORHD No results within date range. ABSCREEN No results within date range. No results found for: HBA1C No results found for this or any previous visit (from the past 8760 hour(s)). No results found for this or any previous visit (from the past 72283 hour(s)). Instructions Given to Patient: Instructions located in the after visit summary. Patient given verbal and written preop instructions and voices comprehension and compliance. SIGNATURE: SUZETTE Garcia PATIENT NAME: Landon Frost DATE: July 06, 2023 TIME: 9:07 AM PAGER/CONTACT #: I spent a total of 15 minutes on the date of the service which included preparing to see the patient, [id number] patient care, and completing clinical documentation. documented in this encounter [facility] 04-19-2023 Note HNO ID: [id number] Author: Farhan Sommers MD, PhD Service: ? Author Type: Physician Type: Progress Notes Filed: 04/19/2023 12:54 PM Note Text: April 19, 2023 CHIEF COMPLAINT: left thumb pain/instability HPI: Landon Frost is a 17 year old LHD male who presents to clinic with Pain and instability of his left thumb. 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 He recently finished his senior season. He was able to play this year by taping his thumb. He was previously told he had a collateral ligament injury to the thumb but was advised that he could continue playing and have it dealt with later if he was physically able to play. 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 Denies numbness tingling. Does report pain with daily activities around his MCP joint. Referred by: Dr Kennedy Occupation: high school student Hobbies: football Pain: yes Weakness: yes Paresthesia: no Decreased Motion:no Locking / Catching: no Mass or Lesion: no HISTORY OF TRAUMA: yes Fracture: no Dislocation: no Laceration: no PREVIOUS TREATMENTS: Injections: no Medication: no Splints: yes Therapy:no Other: taping ASSESSMENT: 17 year old male with left thumb UCL injury S63.642A Rupture of ulnar collateral ligament of left thumb, 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 (primary encounter diagnosis) PLAN: We discussed various treatment options for this condition, including nonoperative management in the form of splinting, versus operative management in the form of repair versus repair plus augmentation of internal brace versus reconstruction. Given the fact that he is 17 and healthy, he may not need reconstruction, even though the injury occurred over a year ago. We will book him for a repair versus a reconstruction with an internal brace. OBJECTIVE: There were no vitals filed for this visit. There is no height or weight on file to calculate BMI. General: NAD Eyes: Pupils not pinpointed, not overly dilated, anicteric Neck: Full range of motion Cardiovascular: Palpable pulse and brisk capillary refill (<2 sec) to all fingers Lymphatic: Inspection of the arm/hand reveals no lymphedema and palpation of epitrochlear nodes is unremarkable. Respiratory: Respirations even and unlabored, no audible wheezing Integumentary: Inspection of skin reveals no breaks or obvious lesions except for those noted below. Neuro: Intact sensation to light touch over the median, ulnar, and radial nerve distributions. Psychiatric: No obvious anxiety, well kempt, normal affect. Appropriate response to pain. Musculoskeletal: Able to flex and extend all fingers at the DIP and PIP. Able to retropulse the thumb, abduct all fingers against resistance. Left thumb Swelling of MCP joint Laxity with valgus stress in 30 degrees of flexion without firm endpoint No laxity in full extension Mild TTP over ulnar side of joint No hyperextension No palmaris present SILT distally, digit WWP IMAGING: Radiographs and MRI of the left thumb were obtained in 2021 which were personally reviewed by me and demonstrate UCL tear with associated Stener lesion Supporting Subjective Information Below: Past Medical History: PAST MEDICAL HISTORY Diagnosis Date Dislocated elbow 05-13-14 NEGATIVE MEDICAL HISTORY PMH - PAST MEDICAL HISTORY OF 2009 normal color vision Past Surgical History: PAST SURGICAL HISTORY Procedure Laterality Date CIRCUMCISION Family History: FAMILY HISTORY Problem Relation Age of Onset None Mother None Father Diabetes Maternal Grandmother Hypertension Maternal Grandmother Cancer Maternal Grandfather skin Diabetes Maternal Grandfather Hypertension Maternal Grandfather Heart Paternal Grandfather Cancer Other colon cancer paternal side Medications: Current Outpatient Medications Medication Sig Dispense Refill fluticasone (FLONASE) 50 mcg/actuation nasal spray Use 1 Ramsey in each nostril once daily. 1 Bottle 5 fexofenadine (TESSY) 60 mg tablet Take 1 tablet by mouth twice daily. (Patient not taking: Reported on 04/19/2023) 180 tablet 3 No current facility-administered medications for this visit. Allergies: ALLERGIES No Known Allergies ROS: General (negative for fatigue) HEENT (negative for headache, earache, recent vision changes, sinus pain, sore throat) Respiratory (no recent shortness of breath, hemoptysis) CV (negative for chest tightness, palpitations) GI (negative for change in bowel habits) Hematologic (no spontaneous bleeding, bruising) Endocrine (no heat or cold intolerance) Airam Alvarez MD ATTENDING NOTE: I personally performed a history and physical examination on Landon Frost to verify the one performed by Airam Alvarez MD. I reviewed their findings, plan and note, and have made changes above as needed so that I agree with the documentation. I discussed the plan with the patient (more content not included)... [facility] 04-19-2023 History of Present illness Narrative April 19, 2023 CHIEF COMPLAINT: left thumb pain/instability HPI: Landon Frost is a 17 year old LHD male who presents to clinic with Pain and instability of his left thumb. 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 He recently finished his senior season. He was able to play this year by taping his thumb. He was previously told he had a collateral ligament injury to the thumb but was advised that he could continue playing and have it dealt with later if he was physically able to play. 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 Denies numbness tingling. Does report pain with daily activities around his MCP joint. Referred by: Dr Kennedy Occupation: high school student Hobbies: football Pain: yes Weakness: yes Paresthesia: no Decreased Motion:no Locking / Catching: no Mass or Lesion: no HISTORY OF TRAUMA: yes Fracture: no Dislocation: no Laceration: no PREVIOUS TREATMENTS: Injections: no Medication: no Splints: yes Therapy:no Other: taping ASSESSMENT: 17 year old male with left thumb UCL injury S63.059J Rupture of ulnar collateral ligament of left thumb, 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 (primary encounter diagnosis) PLAN: We discussed various treatment options for this condition, including nonoperative management in the form of splinting, versus operative management in the form of repair versus repair plus augmentation of internal brace versus reconstruction. Given the fact that he is 17 and healthy, he may not need reconstruction, even though the injury occurred over a year ago. We will book him for a repair versus a reconstruction with an internal brace. OBJECTIVE: There were no vitals filed for this visit. There is no height or weight on file to calculate BMI. General: NAD Eyes: Pupils not pinpointed, not overly dilated, anicteric Neck: Full range of motion Cardiovascular: Palpable pulse and brisk capillary refill (<2 sec) to all fingers Lymphatic: Inspection of the arm/hand reveals no lymphedema and palpation of epitrochlear nodes is unremarkable. Respiratory: Respirations even and unlabored, no audible wheezing Integumentary: Inspection of skin reveals no breaks or obvious lesions except for those noted below. Neuro: Intact sensation to light touch over the median, ulnar, and radial nerve distributions. Psychiatric: No obvious anxiety, well kempt, normal affect. Appropriate response to pain. Musculoskeletal: Able to flex and extend all fingers at the DIP and PIP. Able to retropulse the thumb, abduct all fingers against resistance. Left thumb Swelling of MCP joint Laxity with valgus stress in 30 degrees of flexion without firm endpoint No laxity in full extension Mild TTP over ulnar side of joint No hyperextension No palmaris present SILT distally, digit WWP IMAGING: Radiographs and MRI of the left thumb were obtained in 2021 which were personally reviewed by me and demonstrate UCL tear with associated Stener lesion Supporting Subjective Information Below: Past Medical History: PAST MEDICAL HISTORY Diagnosis Date Dislocated elbow 05-13-14 NEGATIVE MEDICAL HISTORY PMH - PAST MEDICAL HISTORY OF 2009 normal color vision Past Surgical History: PAST SURGICAL HISTORY Procedure Laterality Date CIRCUMCISION Family History: FAMILY HISTORY Problem Relation Age of Onset None Mother None Father Diabetes Maternal Grandmother Hypertension Maternal Grandmother Cancer Maternal Grandfather skin Diabetes Maternal Grandfather Hypertension Maternal Grandfather Heart Paternal Grandfather Cancer Other colon cancer paternal side Medications: Current Outpatient Medications Medication Sig Dispense Refill fluticasone (FLONASE) 50 mcg/actuation nasal spray Use 1 Ramsey in each nostril once daily. 1 Bottle 5 fexofenadine (TESSY) 60 mg tablet Take 1 tablet by mouth twice daily. (Patient not taking: Reported on 04/19/2023) 180 tablet 3 No current facility-administered medications for this visit. Allergies: ALLERGIES No Known Allergies ROS: General (negative for fatigue) HEENT (negative for headache, earache, recent vision changes, sinus pain, sore throat) Respiratory (no recent shortness of breath, hemoptysis) CV (negative for chest tightness, palpitations) GI (negative for change in bowel habits) Hematologic (no spontaneous bleeding, bruising) Endocrine (no heat or cold intolerance) Airam Alvarez MD ATTENDING NOTE: I personally performed a history and physical examination on Landon Frost to verify the one performed by Airam Alvarez MD. I reviewed their findings, plan and note, and have made changes above as needed so that I agree with the documentation. I discussed the plan with the patient. Biju Sommers MD, PhD Hand & Upper Extremity Orthopaedic Staff Surgeon documented in this encounter [facility] 03-23-2023 Miscellaneous Notes Transferred to [facility]. Jes Ramirez MA Pts father calling to schedule the appt with Dr. Sommers. Please contact them at [phone]. Jes Ramirez MA 1st call attempt, left vm Please assist patient with appointment to see Dr. Sommers. Thank you. Images from the original note were not included. Jacqueline Silva PA-C [facility] Orthopaedic Pool; [facility] Clerical Pool [address] days [address] with Dr. Kennedy, patient needs to schedule a consult with Dr. Sommers, can we assist him with scheduling? Jacqueline Pts father calling in. Pt was seen last year for torn ligament in his thumb. There was evidentially something in the works about a coordinated surgery with another provider, but then they didn't hear back. Pt is now finished with football and would like to proceed with surgery. Will schedule appt with Dr. Kennedy, but wanted to be sure that this was still something that Dr. Kennedy would do in coordination with the other surgeon. Please review and advise. Jes Ramirez MA documented in this encounter [facility] 04-22-2022 Miscellaneous Notes Mother called back and provider message was relayed. Jes Ramirez I left a message for patients father to contact office. See message below from Dr. Kennedy. Images from the original note were not included. Marques Kennedy MD [facility] [place] Please call and let family know we are still trying to coordinate surgery. First open date is not until July, however we are trying to expedite things to sooner. Patient father Emanuel called asking what is the next step, was in for an office visit with Dr Kennedy 03/19/22, was told would be contacted after Dr Kennedy reviewed with colleague. Please call and update patient parent. Thank you Emanuel# [phone] documented in this encounter [facility] 03-19-2022 History of Present illness Narrative Patient presents with: Left Thumb - Discussion: surgery Marques Kennedy MD Department of Orthopaedics Orthopaedics [address] [facility] [address] Dept: [phone] Dept March 19, 2022 CHIEF COMPLAINT: Discussion of the Left Thumb (surgery) HPI His football season is over. He is interested in pursuing surgery for the thumb as it is still bothering him. He was able to tape and splint for football. ASSESSMENT: S63.672H Rupture of ulnar collateral ligament of left thumb, subsequent encounter (primary encounter diagnosis) PLAN: I'll discuss with one of my colleagues to try and coordinate ligament repair. Mr. Landon Frost was advised as to contrast therapies and/or to take analgesics/anti-inflammatories as needed and all contraindications were reviewed. OBJECTIVE: Mr. Landon Frost is a pleasant 16 year old in no apparent distress. Gen:There were no vitals taken for this visit. nl development, non obese, no deformities ENT: Normocephalic, normal hearing, moist mucosa CV: Pulses:Radial= 2+ and symmetric, capillary refill < 2 secs, no peripheral edema/varicosities Skin: no rash, bruising or lesions. Good turgor. Psych: cooperative and appropriate, alert and oriented x 3, good mood and affect. Musculoskeletal: Swelling down. Slight instability still noted. Imaging: IMPRESSION: Displaced rupture of thumb ulnar collateral ligament with associated Stener lesion. Distal first metacarpal marrow contusion. Craps Manager: [facility] Transcribe Date/Time: Jan 10 2022 9:38A Dictated by : ANIVAL ZARAGOZA DO This examination was interpreted and the report reviewed and electronically signed by: JESSICA GRACE MD on Jan 10 2022 11:15AM EST Results-Findings * * *Final Report* * * DATE OF EXAM: Jan 09 2022 7:00PM [facility] 0200 - MRI HAND WO IVCON LT / PROCEDURE REASON: Closed fracture of left hand, 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 * * * * Physician Interpretation * * * * EXAMINATION: MRI HAND WO IVCON LT HISTORY: 16-year-old male presenting with left thumb fracture status post injury on 12/19/2021 during football, concerning for ulnar collateral ligament rupture. TECHNIQUE: Routine MRI of the thumb without contrast COMPARISON: Abdominal radiographs 12/22/2021 RESULT: Ligaments: Rupture of ulnar collateral ligament of the thumb at the distal attachment, with retraction and displacement superficial to the adductor aponeurosis, consistent with a Stener lesion. Associated moderate marrow edema at the base of some proximal phalanx. Tendons: Mild increased signal within the tendon sheath of the thumb flexor tendon at the level of base of proximal phalanx, likely reactive fluid. The visualized flexor and extensor tendons are otherwise intact. Bones and bone marrow: Subacute moderate contusion at the distal first metacarpal with moderate marrow edema. Joints/cartilage: Mild volar subluxation at the thumb MCP joint. Joint fluid: Small joint effusion at the thumb MCP joint. Other: No other significant findings. Localizer images: No significant additional findings. Supporting Subjective Information Below: Past Surgical History: PAST SURGICAL HISTORY Procedure Laterality Date CIRCUMCISION Medications: Current Outpatient Medications Medication Sig fexofenadine (TESSY) 60 mg tablet Take 1 tablet by mouth twice daily. fluticasone (FLONASE) 50 mcg/actuation nasal spray Use 1 Ramsey in each nostril once daily. No current facility-administered medications for this visit. Allergies: Patient has no known allergies. ROS: General (negative for fatigue, malaise, weight loss/gain) HEENT (negative for headache, earache, recent vision changes, sinus pain, sore throat) Respiratory (no recent shortness of breath, hemoptysis) CV (negative for chest tightness, palpitations) Musculoskeletal (see HPI) Psych (no depression, anxiety) Marques Kennedy MD documented in this encounter [facility] 03-10-2022 Miscellaneous Notes Called and spoke with patient's father. Scheduled an appointment next week to discuss surgery Father calling to follow up on scheduling surgery. Football season is almost over for the patient and they wanted to start the process of updating H&P and needed pre op. They have a play off game this weekend and likely next weekend, but unsure if season will continue beyond that. Please advise. Brenda Hector LPN documented in this encounter [facility] 01-09-2022 History of Present illness Narrative Radiology Service Progress Note PATIENT NAME: Landon Frost DATE OF SERVICE: January 09, 2022 TIME: 6:35 PM PATIENT IDENTITY VERIFICATION COMPLETED USING TWO (2) IDENTIFIERS: Name and Date of confirmed by patient verbally. FALL SCREENING: Has the patient had 2 falls in the last year or 1 fall with injury or currently using an Ambulatory Assistive Device (Walker,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
[2024-11-06 11:30] LABS: AST(SGOT) 32 U/L (<=37); Alanine Aminotransfer ALT/SGPT 33 U/L (<=46); Cholesterol 143 mg/dL (<=190); High Density Lipoprotein 45 mg/dL; Low Density Lipoprotein Calc. 83 mg/dL; Triglycerides 77 mg/dL; Very Low Density Lipoprotein 15 mg/dL (5-40); cholesterol:hdl ratio screen 3.17
[2024-11-07 04:07] LABS: LDL, Direct 120295 84 mg/dL (0-109)
== END | disposition home or self-care (01) ==
LOC: MTLAB 07:13
PROVIDERS: PCP Pediatrics; Referring Provider Physician Assistant; Visit Provider Physician Assistant
DX: L70.0 Acne vulgaris (principal)
CPT/HCPCS: 36415; 80061; 83721; 84450; 84460

== ENCOUNTER → 2025-01-23 | Outpatient (CLI) | payer BC, SELFPAY ==
[2025-01-23 18:27] LABS: AST(SGOT) 34 U/L (<=37); Alanine Aminotransfer ALT/SGPT 23 U/L (<=46); Cholesterol 138 mg/dL (<=190); Low Density Lipoprotein Calc. 77 mg/dL; Triglycerides 42 mg/dL; Very Low Density Lipoprotein 8 mg/dL (5-40); cholesterol:hdl ratio screen 2.62
== END | disposition home or self-care (01) ==
LOC: MTLAB 16:43
PROVIDERS: PCP Pediatrics; Referring Provider Physician Assistant; Visit Provider Physician Assistant
DX: L70.0 Acne vulgaris (principal)
CPT/HCPCS: 36415; 80061; 84450; 84460